=== PATIENT | female | born 2000 | race Caucasian/White ===

== ENCOUNTER 2023-07-28 09:55 | Emergency (ER) | payer OTHER, SELFPAY ==
[2023-07-28 10:15] VITALS: BP 105/75
--- NOTE | 2023-07-28 10:57 | ED.GENMED ---
History of Present Illness
General
Chief Complaint: Cold/Flu/URI Symptoms
Source: patient
Exam Limitations: none
Time Seen by Provider: 07/28/23 10:51
Nursing documentation reviewed up to this point in time: agreed with
Travel History
Have you had any contact with someone who has COVID-19?: No
Do you have any symptoms of coronavirus? Fever > 100 degrees, chills, cough, shortness of breath, sore throat, loss of taste or smell, muscle aches, or headache?: No
History of Present Illness
History of Present Illness:
Patient presents to ED secondary to persistent sore throat, intermittent cough, after cleaning unfinished attic last night. Denies fever. Denies nausea vomiting. Denies chest pain. Denies shortness of breath. Denies back pain. Denies rash. Of
note, patient does admit to vaping daily.
Past History
Past History
ED Past Medical History: Other (Asberger's)
ED Past Surgical History: Cholecystectomy
Social History
Tobacco: Non-smoker
Alcohol: None
Review of Systems
Review of Systems
Allergies reviewed?: Yes
All Other Systems: ROS reviewed and negative except as documented in HPI and ROS
Constitutional: Reports no symptoms; Denies fever
EENT: Reports sore throat
Respiratory: Reports cough; Denies trouble breathing
Cardiac: Reports no symptoms
ABD/GI: Reports no symptoms
Musculoskeletal: Reports no symptoms
Skin: Reports no symptoms; Denies rash
Neurological: Reports no symptoms; Denies dizzy or headache
Phy Exam
Physical Exam
Physical Exam:
Physical Exam
General: no apparent distress, not acutely ill. afebrile
Head: nc/at. eomi
Neck: supple. no meningeal signs
Heart: s1/s2 regular rate and rhythm, no murmur. equal radial pulses.
Lungs: no acute respiratory distress. clear bilaterally
Abdomen: normal bowel sounds. not tender.
Neuro: alert and oriented. no focal neurological deficits
Skin: no rash
Psychiatric: well kept. interactive and cooperative
Extremities: no edema. no calf tenderness.
Course
Vital Signs
Initial and Last Documented VS:
Initial Vital Signs
Temp Pulse Resp BP Pulse Ox
99.4 F 87 16 105/75 98
07/28/23 10:15 07/28/23 10:15 07/28/23 10:15 07/28/23 10:15 07/28/23 10:15
Last Documented Vital Signs
Temp Pulse Resp BP Pulse Ox
99.4 F 87 16 105/75 98
07/28/23 10:15 07/28/23 10:15 07/28/23 10:15 07/28/23 10:15 07/28/23 10:15
MDM/Problems Addressed
MDM/Problems Addressed:
History and exam consistent with likely environmentally induced pneumonitis. Otherwise, patient is afebrile, hemodynamically stable, and is without any acute respiratory distress. Patient will be treated symptomatically, with short course of
prednisone along with inhaler, as well as PCP follow-up later this week.
*Critical Care Note
Total Time (30-74mins, 75-104mins- exclusive of procedures): Not Applicable
ED Attending Note
-
Portions of this chart may have been created with voice recognition software.� Occasional wrong word or��sound alike� substitutions may have occurred due to the inherent limitations of voice recognition software.
Discharge Plan
Departure
Patient Disposition: Home (Routine Discharge)
Date of Disposition: 07/28/23
Time of Disposition: 11:00
Patient with high blood pressure during this ER visit?: No
Discharge Problem:
Pneumonitis
Instructions: Pneumonitis (DC)
Prescriptions:
New
albuterol sulfate [ProAir HFA] 90 mcg/actuation Hfa Aerosol Inhaler
2 puff INHALATION Q4HPRN PRN (Reason: shortness of breath) Qty: 6.7 0RF
prednisone 50 mg Tablet
50 mg PO DAILY Qty: 2 0RF
No Action
ondansetron 4 MG tablet,disintegrating
4 mg PO TIDPRN PRN (Reason: nausea) Qty: 7 0RF
albuterol sulfate [ProAir HFA] 90 mcg/actuation Hfa Aerosol Inhaler
2 puff INHALATION Q4HPRN PRN (Reason: shortness of breath) Qty: 8.5 0RF
azithromycin [Zithromax] 250 mg tablet
250 mg PO DAILY Qty: 4 0RF
prednisone 50 mg Tablet
50 mg PO DAILY Qty: 2 0RF
benzonatate 100 mg capsule
100 mg PO TID PRN (Reason: Cough) Qty: 20 0RF
Activity Restrictions/Additional Instructions:
As discussed, please follow-up with your primary care physician later this week for reevaluation. Your prescriptions have been sent electronically to [facility] pharmacy on [address] in [place].
Interventions
Interventions:
*General Assessment Last Done: 07/28/23 11:15
*ED COVID-19 Vaccine History Last Done: 07/28/23 10:15
*Nursing Disposition Last Done: 07/28/23 11:15
ED- Pulmonary Assessment Last Done: 07/28/23 11:15
Discharge Date and Time
Discharge Date/Time: 07/28/23 11:16
Print Language: AZERI
== END 2023-07-28 11:16 | disposition home or self-care (01) ==
LOC: EMR 09:55
PROVIDERS: EMERGENCY PHYSICIAN Emergency Medicine
DX: J18.9 Pneumonia, unspecified organism (principal)
CPT/HCPCS: 99283

== ENCOUNTER → 2023-11-13 10:25 | Outpatient (REF) | payer OTHER, SELFPAY ==
[2023-11-15 20:06] LABS: Quantiferon Mitogen minus NIL 9.99 IU/mL; Quantiferon NIL 0.01 IU/mL; Quantiferon Plus TB1 minus NIL 0.02 IU/mL (<=0.34); Quantiferon TB Gold Plus Negative (Negative)
== END ==
LOC: OHS 10:25
PROVIDERS: ATTENDING PHYSICIAN Nurse Practitioner Family
DX: Z23 Encounter for immunization (principal)
CPT/HCPCS: 36415; 86480

== ENCOUNTER 2024-02-15 17:36 | Emergency (ER) | payer OTHER, SELFPAY ==
[2024-02-15 17:39] VITALS: BP 130/86
[2024-02-15 18:22] VITALS: BMI 18.1
[2024-02-15 18:39] LABS: % Basophils 0.7 % (0-2); % Immature Granulocytes 0.5 % (0-0.5); % Lymphocytes 9.8 % (20.5-51.1); % Monocytes 4.6 % (1.7-9.3); % Neutrophils 84.4 % (42.2-75.2); Absolute Basophils 0.1 10^3/uL (0-0.2); Absolute Lymphocytes 0.9 10^3/uL (1.2-3.4); Absolute Monocytes 0.4 10^3/uL (0.1-0.6); Absolute Neutrophils 7.4 10^3/uL (1.4-6.5); Hematocrit 39.3 % (37.0-47.0); Hemoglobin 13.8 g/dL (12.0-16.0); Mean Corp Hgb Conc. 35.1 g/dL (33.0-37.0); Mean Corpuscular Hgb 31.8 pg (27.0-31.0); Mean Corpuscular Volume 90.6 fL (81.0-99.0); Mean Platelet Volume 9.3 fL (7.4-10.4); Nucleated Red Blood Cells % 0 %; Platelet Count 227 10^3/uL (130-400); Red Blood Cell Count 4.34 10^6/uL (4.20-5.40); Red Cell Dist. Width 11.7 % (11.5-14.5); White Blood Cell Count 8.8 10^3/uL (4.8-10.8)
[2024-02-15] MEDS: ZOFRAN 4 MG IV (18:39)
[2024-02-15] MEDS: NSS 1000 IV ×2 (18:39→20:15)
[2024-02-15 18:43] VITALS: BP 111/66
[2024-02-15 18:59] LABS: HCG, Serum Qualitative Screen Negative
[2024-02-15 19:10] VITALS: BP 108/68
[2024-02-15 19:17] LABS: ALT (SGPT) 24 U/L (0-35); AST (SGOT) 37 U/L (14-36); Albumin 4.9 g/dl (3.5-5.0); Alkaline Phosphatase 40 U/L (38-126); Blood Urea Nitrogen 16 mg/dl (7-17); Calcium 9.4 mg/dl (8.4-10.2); Carbon Dioxide 26 mmol/L (22-30); Chloride 103 mmol/L (98-107); Estimated Creatinine Clearance 99 ml/min; Glucose 99 mg/dl (70-99); Lipase 126 U/L (23-300); Potassium 3.8 mmol/L (3.5-5.1); Sodium 141 mmol/L (135-145); Total Bilirubin 1.3 mg/dl (0.2-1.3); Total Protein 7.4 g/dl (6.3-8.2); eGFR > 60.00
[2024-02-15 19:20] LABS: Urine Albumin Trace (Neg - Trace); Urine Bilirubin Negative (Negative); Urine Character Clear (Clear); Urine Color Yellow; Urine Glucose Negative (Negative); Urine Ketone 2+ (Negative); Urine Leukocyte Negative (Negative); Urine Nitrite Negative (Negative); Urine Occult Blood Negative (Negative); Urine Urobilinogen Negative (Neg - 1+)
[2024-02-15 20:00] VITALS: BP 100/63
[2024-02-15 21:00] VITALS: BP 99/68
[2024-02-15] MEDS: ZOFRAN ODT (ORALLY DISINTEGRATING) 4 MG PO (21:19)
--- NOTE | 2024-02-15 23:06 | ED.GENMED ---
History of Present Illness
General
Chief Complaint: Dehydration Symptoms
Source: patient
Exam Limitations: none
Time Seen by Provider: 02/15/24 18:32
Nursing documentation reviewed up to this point in time: agreed with
History of Present Illness
History of Present Illness:
Patien to ED wtih cmoplaint of nausea and vomiting. Symptoms started last PM. Denies fever/chills, recent illness. No abd. pain. Requesting re-hydration.
Past History
Past History
ED Past Medical History: Other (Asberger's)
ED Past Surgical History: Cholecystectomy
Social History
Tobacco: Non-smoker
Alcohol: None
Review of Systems
Review of Systems
Allergies reviewed?: Yes
All Other Systems: ROS reviewed and negative except as documented in HPI and ROS
Constitutional: Reports no symptoms
EENT: Reports no symptoms
Respiratory: Reports no symptoms
Cardiac: Reports no symptoms
ABD/GI: Reports nausea and vomiting
: Reports no symptoms
Musculoskeletal: Reports no symptoms
Skin: Reports no symptoms
Neurological: Reports no symptoms
Psychiatric: Reports no symptoms
Phy Exam
General Physical Exam
General Presentation: well appearing and no apparent distress
General age: appears stated age
General Skin: warm and dry
General Habitus: normal
Cardiovascular Exam
Cardiovascular Exam: regular rate/rhythm and no edema
Gastrointestinal Exam
Gastrointestinal Exam: normal bowel sounds, non tender, soft, no organomegaly, non distended and no cva tenderness
Musculoskeletal Exam
Musculoskeletal Exam: full ROM and neuro vasc intact
Skin Exam
Skin Exam: normal color, warm/dry and no rash
Psychiatric Exam
Psychiatric Exam: normal mood/affect
Course
Orders/Labs/Results
Orders:
Orders
02/15/24 18:32
Test Result ONCE
02/15/24 18:33
Complete Blood Count/With Diff Urgent
Comprehensive Metabolic Panel Urgent
HCG, Serum Qualitative Screen Urgent
Lipase Urgent
02/15/24 18:36
0.9% Sodium Chloride 1000 ml [Nss] 1,000 ml IV BOLUS
Ondansetron Injectable [Zofran] 4 mg IV NOW STA
02/15/24 19:09
Urinalysis Reflex To Culture Urgent
Date Specimen was Collected: 02/15/24
Time Specimen was Collected: 19:07
02/15/24 19:55
0.9% Sodium Chloride 1000 ml [Nss] 1,000 ml IV BOLUS
02/15/24 21:08
Ondansetron Orally Disint [Zofran Odt (Orally Disintegrating)] 4 mg PO NOW STA
Abnormal Lab Results
02/15/24 02/15/24
18:33 19:09
MCH 31.8 H pg
(27.0-31.0)
Absolute Neuts (auto) 7.4 H 10^3/uL
(1.4-6.5)
Absolute Lymphs (auto) 0.9 L 10^3/uL
(1.2-3.4)
Neutrophils % 84.4 H %
(42.2-75.2)
Lymphocytes % 9.8 L %
(20.5-51.1)
AST 37 H U/L
(14-36)
Urine Ketones 2+ A
(Negative)
02/15/24 18:33
02/15/24 18:33
Vital Signs
Initial and Last Documented VS:
Initial Vital Signs
Temp Pulse Resp BP Pulse Ox
98.7 F 76 18 130/86 99
02/15/24 17:39 02/15/24 17:39 02/15/24 17:39 02/15/24 17:39 02/15/24 17:39
Last Documented Vital Signs
Temp Pulse Resp BP Pulse Ox
98.5 F 64 14 99/68 99
02/15/24 19:10 02/15/24 21:00 02/15/24 21:00 02/15/24 21:00 02/15/24 21:00
*Critical Care Note
Total Time (30-74mins, 75-104mins- exclusive of procedures): Not Applicable
Update Note
Update Note:
Given IVF and zofran in dept with improvement. No further nausea or vomiting. Will discharge home. Given instructions on s/s to return ot ED and she is agreeable to plan.
ED Attending Note
-
Portions of this chart may have been created with voice recognition software.� Occasional wrong word or��sound alike� substitutions may have occurred due to the inherent limitations of voice recognition software.
Discharge Plan
Departure
Patient Disposition: Home (Routine Discharge)
Date of Disposition: 02/15/24
Time of Disposition: 21:09
Patient with high blood pressure during this ER visit?: No
Condition: Good
Covid-19: Not Applicable
Discharge Problem:
Nausea & vomiting
Instructions: Nausea and Vomiting, Adult (DC), Clear Liquid Diet
Prescriptions:
New
ondansetron 4 mg tablet,disintegrating
4 mg PO TID PRN (Reason: nausea and vomiting) 4 Days Qty: 10 0RF
No Action
albuterol sulfate [ProAir HFA] 90 mcg/actuation Hfa Aerosol Inhaler
2 puff INHALATION Q4HPRN PRN (Reason: shortness of breath) Qty: 8.5 0RF
Referrals:
Tima Jewell Jr., MD [Family Provider] - Tomorrow
Activity Restrictions/Additional Instructions:
Return to the emergency department immediately for any changes in/worsening of your symptoms.
Interventions
Interventions:
*Risk Screen - Suicide Last Done: 02/15/24 17:39
*General Assessment Last Done: 02/15/24 17:39
*Neglect/Abuse Screening Last Done: 02/15/24 17:39
ED- Fall Risk Assessment Last Done: 02/15/24 18:44
*ED COVID-19 Vaccine History Last Done: 02/15/24 18:26
*Nursing Disposition Last Done: 02/15/24 21:35
ED- Cardiac Assessment Last Done: 02/15/24 19:17
ED- Neurological Assessment Last Done: 02/15/24 19:17
ED- Pulmonary Assessment Last Done: 02/15/24 19:17
Discharge Date and Time
Discharge Date/Time: 02/15/24 21:35
Print Language: GREENLANDIC
== END 2024-02-15 21:35 | disposition home or self-care (01) ==
LOC: EMR 17:36
PROVIDERS: Nurse Practitioner; EMERGENCY PHYSICIAN Emergency Medicine; FAMILY PHYSICIAN Urology
DX: R11.2 Nausea with vomiting, unspecified (principal)
CPT/HCPCS: 99283; 96374; 96361; 80053; 81003; 83690; 84703; 85025